=== PATIENT | female | born 1985 | race Asian ===

== ENCOUNTER 2019-08-21 02:59 | Emergency (ER) | payer SELFPAY ==
[~2019-08-21] VITALS: Ht 160 cm; Wt 78.0 kg
[2019-08-21] MEDS ORDERED: [UNRECOGNIZED DRUG - OTHER] (03:14)
[2019-08-21 05:16] LABS: HEMATOCRIT. 42.7 % (36.0-48.0); HEMOGLOBIN. 14.6 g/dL (12.0-16.0); MEAN CORPUSCULAR HEMOGLOBIN 30.5 pg (28.0-32.0); MEAN CORPUSCULAR VOLUME 89.3 fL (81.0-99.0); MEAN PLATELET VOLUME 7.4 fl (7.4-10.4); PLATELET 322 x1000/uL (130-400); RED BLOOD CELL COUNT 4.78 mill/uL (4.2-5.4); RED CELL DISTRIBUTION WIDTH 13.3 % (11.6-14.6)
[2019-08-21 05:23] LABS: CHLORIDE 108 mEq/L (98-107)
[2019-08-21 05:25] LABS: CLARITY URINE CLEAR (CLEAR); COLOR URINE YELLOW (YELLOW); KETONES URINE 3+ (NEGATIVE); LEUKOCYTE ESTERASE URINE NEGATIVE (NEGATIVE); NITRITE URINE NEGATIVE (NEGATIVE); OCCULT BLOOD URINE NEGATIVE (NEGATIVE); PH URINE 6.5 (4.5-8.0); PROTEIN URINE TRACE (NEGATIVE); SPECIFIC GRAVITY URINE 1.041 (1.005-1.030); UROBILINOGEN URINE 0.2 E.U./dL (0.2-1.0)
[2019-08-21] MEDS ORDERED: KETOROLAC 30MG/ML VIAL IV STA (06:11)
[2019-08-21] MEDS ORDERED: ONDANSETRON HCL 4MG/2ML INJ IV STA ×2 (06:11→07:36)
[2019-08-21 07:15] LABS: PLATELET ESTIMATE NORMAL
[2019-08-21] MEDS ORDERED: ACETAMINOPHEN 325MG TABLET PO STA (07:36)
[2019-08-21 08:28] VITALS: BP 114/69
== END 2019-08-21 08:31 | disposition home or self-care (01) ==
LOC: ER 02:59
DX: R10.10 Upper abdominal pain, unspecified (principal); Z85.850 Personal history of malignant neoplasm of thyroid; E89.0 Postprocedural hypothyroidism
CPT/HCPCS: 36415; 76705; 80053; 81003; 81025; 83690; 85025; 96374; 96375; 99284; J1885; J2405; Z7610